=== PATIENT | female | born 1985 ===

== ENCOUNTER 2020-01-31 09:19 | Inpatient (IN) | payer MEDICAID, OTHER ==
[2020-01-31] MEDS ORDERED: METOCLOPRAMIDE 10 MG/2 ML INJ IV ONE (09:41)
[2020-01-31] MEDS ORDERED: FAMOTIDINE 20 MG/2 ML INJ IV ONE (09:41)
[2020-01-31] MEDS ORDERED: BICITRA ORAL LIQD 30ML PO ONE (09:41)
[2020-01-31] MEDS ORDERED: OXYTOCIN 20 UNIT/1000ML DRIP 20 UNITS/1,000 ML BAG IV SCH ×2 (10:00→13:00)
[2020-01-31] MEDS ORDERED: ceFAZolin/Water 2 GM/20 ML 2 GM/20 ML SYRINGE IV NR (10:00)
[2020-01-31] MEDS: LACTATED RINGERS 1,000 ML IV SCH ×3 (10:20→17:23)
[2020-01-31 10:33] LABS: Basophils % (Auto) 0.8 % (0.0-1.8); Eosinophils # (Auto) 0.1 K/mm3 (0.0-0.4); Eosinophils % (Auto) 1.1 % (0.0-4.3); Hematocrit 37.2 % (30.3-42.9); Hemoglobin 12.6 gm/dl (10.1-14.3); Lymphocytes # (Auto) 1.6 K/mm3 (1.2-5.4); Lymphocytes % (Auto) 24.5 % (13.4-35.0); Mean Corpuscular HGB Conc 34 % (30-34); Mean Corpuscular Volume 92 fl (79-97); Monocytes # (Auto) 0.4 K/mm3 (0.0-0.8); Monocytes % (Auto) 6.8 % (0.0-7.3); Platelet Count 279 K/mm3 (140-440); Red Blood Count 4.03 M/mm3 (3.65-5.03); Red Cell Distribution Width 14.9 % (13.2-15.2)
[2020-01-31] MEDS ORDERED: BUPIVACAINE/PF (0.5%) 5 MG/1 ML 30 ML VIAL INFILTRATI ONE (11:18)
[2020-01-31] MEDS ORDERED: DEXMEDETOMIDINE 200 MCG/2 ML VIAL IV ONE (11:18)
[2020-01-31] MEDS ORDERED: ONDANSETRON 4 MG/2 ML INJ ONE (11:18)
[2020-01-31] MEDS ORDERED: BUPIVACAINE /DEX-WATER 0.75% (2 ML) AMPULE INFILTRATI ONE (11:18)
--- NOTE | 2020-01-31 11:27 | Anesthesia Consultation ---
Anesthesia Consult and Med Hx Date of service: 01/31/20 - Airway Anesthetic Teeth Evaluation: Good ROM Head & Neck: Adequate Mental/Hyoid Distance: Adequate Mallampati Class: Class II Intubation Access Assessment: Probably Good - Pulmonary Exam CTA: Yes - Cardiac Exam Cardiac Exam: RRR - Pre-Operative Health Status ASA Pre-Surgery Classification: ASA2 Proposed Anesthetic Plan: Spinal - Pulmonary Hx Asthma: No COPD: No Hx Pneumonia: No - Cardiovascular System Hx Hypertension: No - Central Nervous System Hx Seizures: No Hx Psychiatric Problems: No - Endocrine Hx Renal Disease: No Hx End Stage Renal Disease: No Hx Hypothyroidism: No Hx Hyperthyroidism: No - Hematic Hx Anemia: Yes (taking iron) Hx Sickle Cell Disease: No - Other Systems Hx Alcohol Use: No
--- NOTE | 2020-01-31 11:28 | Anesthesia Day of Surgery ---
Anesthesia Day of Surgery - Day of Surgery Patient Examined: Yes Patient H&P Reviewed: Yes Patient is NPO: Yes
[2020-01-31] MEDS ORDERED: ceFAZolin/STERILE WATER 2 GM/20 ML SYRINGE IV ONE (11:37)
[2020-01-31] MEDS ORDERED: NALOXONE 0.4 MG/1 ML INJ IV PRN (12:49)
[2020-01-31] MEDS ORDERED: LANOLIN/ZINC/DIMETHICONE (LANSINOH) 7 GM TP PRN (12:49)
[2020-01-31] MEDS ORDERED: WITCH HAZEL/ GLYCERIN PAD TP PRN (12:49)
--- NOTE | 2020-01-31 12:49 | Procedure Note ---
OB Delivery Note - Delivery Date of Delivery: 01/31/20 Surgeon: TERESA HARRIS Estimated blood loss: other (800 cc) - Section Preop diagnosis: repeat Postop diagnosis: same section procedure: section, repeat low transverse Disposition: PACU Complications: none Narrative: Indication: 35 yo with history of 2 prior C-sections is here for her scheduled repeat low-transverse . Findings: Normal uterus, tubes and ovaries. Clear fluid. Loose nuchal cord x 1. Mild subcutaneous tissue scarring. No significant intra-abdominal scarring Procedure: Patient taken to the operating room and prepped and draped in the usual fashion. Pfannenstiel skin incision was made and carried down to the underlying fascia. Fascia was incised and the incision was extended bilaterally. Rectus fascia dissected off the rectus muscle both superiorly and inferiorly. Peritoneum identified tented up and entered. Peritoneal incision extended superiorly and inferiorly with good visualization of the bladder. Bladder blade was placed. Uterine incision was made and the incision was extended bilaterally. The baby was delivered from in the typical vertex fashion. Baby bulb suctioned at the incision site and again after delivery. Cord was delayed clamped and cut and handed off to waiting team. The placenta was delivered spontaneously. The uterus was exteriorized and cleared of all clots and debris. Uterine incision closed with 0 Vicryl in a running locked fashion followed by a second imbricating layer of 0 Vicryl. Good hemostasis was noted. Her urine was clear. Uterus tubes and ovaries were return to the abdominal cavity. Gutters were cleared of all clots and debris and the pelvis was well irrigated. Good hemostasis noted. Interceed placed over the uterine incision and over the lower uterine segment in the midline. Attention was turned to the rectus fascia which was reapproximated with 0 Vicryl in a running fashion. Subcutaneous tissue was irrigated and reapproximated with 2-0 Vicryl in a running fashion. Skin was closed with 4-0 Vicryl in a subcuticular fashion followed by Dermabond. The procedure was concluded at this point and the patient tolerated the procedure well. All instrument and lap counts were correct. - Infant A at 1 minute: 8 at 5 minutes: 9 Infant Gender: Female
[2020-01-31] MEDS ORDERED: SIMETHICONE 80 MG CHEW TAB PO PRN (12:51)
[2020-01-31] MEDS ORDERED: MAGNESIUM HYDROXIDE (MOM) ORAL LIQD UDC PO PRN (12:51)
[2020-01-31] MEDS ORDERED: SENNOSIDES 8.6 MG TAB PO PRN (12:51)
[2020-01-31] MEDS ORDERED: ONDANSETRON 4 MG/2 ML INJ IV PRN (12:51)
[2020-01-31] MEDS ORDERED: PHENYLEPHRINE/NS 1,000 MCG/10 ML SYRINGE (OR USE) IV ONE (13:25)
--- NOTE | 2020-01-31 13:29 | Progress Note ---
Regional Anesthesia Block - Regional Anesthesia Block Start Time: 13:05 Stop Time: 13:10 Performed By:: MITCHELL WOODS Procedure: U/S guided bilateral tap block performed for post-operative pain requested by Dr. Patel. H&P & labs reviewed. Procedure explained, questions answered, consent obtained. Patient in the supine position with ekg, blood pressure cuff and pulse ox on and working in PACU. Timeout performed immediately before start of procedure. Probe placed in the mid-axillary line and the external oblique, internal oblique, and transverse abdominus muscles identified. Skin was cleansed with 0.5% Chlorahexadine and allowed to dry. A 4" 20 G Dumont echogenic needle was advanced in plane until the tip was in the fascial plane between the internal oblique and the transverse abdominus. After negative aspiration 35 ml/side of [30 ml 0.5% Bupivacaine] and [40 ml sterile saline] was injected in 5 ml increments with negative aspiration in between. Patient tolerated procedure well. Galileo SRNA
--- NOTE | 2020-01-31 13:29 | Post Anesthesia Evaluation ---
- Post Anesthesia Evaluation Patient Participated: Yes Airway Patent: Yes Stable Respiratory Function: Yes Nausea/Vomiting: No Temp > 96.8F: Yes Pain Manageable: Yes Adequeate Hydration: Yes Anesthesia Complications: No Block Receding Appropriately: Yes
[2020-01-31] MEDS: KETOROLAC 30 MG/1 ML INJ IV PRN (17:50)
[2020-02-01] MEDS: KETOROLAC 30 MG/1 ML INJ IV PRN ×2 (00:30→06:26)
[2020-02-01] MEDS: oxyCODONE /ACETAMINOPHEN 5-325MG TAB PO PRN ×2 (02:50→14:13)
[2020-02-01 07:29] LABS: Hematocrit 28.8 % (30.3-42.9); Hemoglobin 9.8 gm/dl (10.1-14.3)
--- NOTE | 2020-02-01 10:36 | Progress Note ---
Assessment and Plan - Patient Problems (1) delivery delivered Current Visit: Yes Status: Acute Plan to address problem: Continue routine PP orders Keep incision clean and dry, remove drsg on POD#2 Anticipate d/c home in 24-48 hrs (2) Anemia Current Visit: Yes Status: Acute Qualifiers: Anemia type: other cause Other causes of anemia: acute posthemorrhagic Qualified Code(s): D62 - Acute posthemorrhagic anemia Plan to address problem: Asymptomatic Increase iron rich foods into diet Continue daily oral iron supplementation as directed Subjective - Subjective Date of service: 02/01/20 Principal diagnosis: S/P repeat C/S; POD#1 Interval history: See admission H&P; OB operative report and PP progress notes Patient reports: appetite normal, voiding normally, pain well controlled (with medications), flatus, ambulating normally [place]: doing well, bottle feeding Objective - Vital Signs Latest vital signs: Vital Signs Temp Pulse Resp BP BP Pulse Ox 02/01/20 08:55 97.7 F 77 18 123/60 97 02/01/20 05:30 98.2 F 86 20 121/64 97 02/01/20 00:04 98.2 F 76 20 116/59 98 01/31/20 19:58 98.2 F 73 20 123/67 97 01/31/20 15:02 98.0 F 83 16 127/70 100 01/31/20 14:05 98.5 F 75 15 113/63 98 01/31/20 13:50 82 14 120/50 99 01/31/20 13:35 83 19 112/66 100 01/31/20 13:20 78 15 110/78 100 01/31/20 13:15 83 17 114/76 99 01/31/20 13:10 88 18 106/47 100 01/31/20 13:05 83 14 114/57 99 01/31/20 13:01 97.9 F 81 15 111/45 100 01/31/20 12:00 98.4 F 76 18 122/74 99 01/31/20 11:14 80 97 01/31/20 11:09 82 97 01/31/20 11:04 79 98 01/31/20 10:55 79 98 01/31/20 10:50 79 98 01/31/20 10:45 77 98 01/31/20 10:40 80 98 01/31/20 10:35 80 97 Intake and Output 01/31/20 02/01/20 02/01/20 23:59 07:59 15:59 Intake Total 480 100 240 Output Total 1400 Balance 480 -1300 240 Intake: Oral 480 100 240 Output: Urine 1400 Indwelling Catheter 600 Void 800 Other: Total, Intake Amount 240 100 240 Total, Output Amount 800 # Voids Void 1 - Exam Breasts: Present: normal Cardiovascular: Present: Regular rate Lungs: Present: Normal air movement Abdomen: Present: soft, tenderness Uterus: Present: firm, fundal height below umbilicus (U-1) Extremities: Present: edema (slight edema in ankles/feet) Deep Tendon Reflex Grade: Normal +2 Incision: Present: dressed (no shadow drainage or bleeding noted) - Labs Labs: Abnormal lab results 02/01/20 Range/Units 06:16 Hgb 9.8 L (10.1-14.3) gm/dl Hct 28.8 L D (30.3-42.9) %
[2020-02-01] MEDS: IBUPROFEN 800 MG TAB PO PRN ×2 (14:12→22:39)
[2020-02-01] MEDS: FERROUS SULFATE 325 MG TAB PO SCH (14:12)
[2020-02-02] MEDS: IBUPROFEN 800 MG TAB PO PRN (05:36)
[2020-02-02] MEDS: oxyCODONE /ACETAMINOPHEN 5-325MG TAB PO PRN (10:07)
[2020-02-02] MEDS: FERROUS SULFATE 325 MG TAB PO SCH ×2 (10:07→10:12)
--- NOTE | 2020-02-02 10:15 | Discharge Summary ---
Providers - Providers Date of Admission: 01/31/20 09:19 Date of discharge: 02/02/20 (1200) Attending physician: TERESA HARRIS Primary care physician: TERESA HARRIS Hospitalization Reason for admission: section Delivery: Procedure: repeat low transverse Episiotomy: none Laceration: none Incision: dry, intact (no drainage or bleeding noted) Other procedures: none complications: none Discharge diagnosis: IUP at term delivered [place] baby: female Hospital course: See admission H & P and OB operative report; PP progress notes Condition at discharge: Stable Disposition: DC-01 TO HOME OR SELFCARE - Discharge Diagnoses (1) delivery delivered Status: Acute (2) Anemia Status: Acute Qualifiers: Anemia type: other cause Other causes of anemia: acute posthemorrhagic Qualified Code(s): D62 - Acute posthemorrhagic anemia Plan - Discharge Medications Prescriptions: Ferrous Sulfate [Feosol 325 MG tab] 325 mg PO QDAY 30 Days #30 tablet Ibuprofen [Motrin 800 MG tab] 800 mg PO Q8HR PRN #30 tablet PRN Reason: Mild Pain oxyCODONE /ACETAMINOPHEN [Percocet 5/325 mg] 1 tab PO Q4HR PRN #30 tablet PRN Reason: Pain - Provider Discharge Summary Activity: routine, no sex for 6 weeks, no heavy lifting 4 weeks, no strenuous exercise Diet: other (Iron rich diet) Instructions: routine Additional instructions: [] Smoking cessation referral if applicable(refer to patient education folder for contact #) [] Refer to [facility] Booklet Call your doctor immediately for: * Fever > 100.5 * Heavy vaginal bleeding ( >1 pad per hour) * Severe persistent headache * Shortness of breath * Reddened, hot, painful area to leg or breast * Drainage or odor from incision. * Keep incision clean and dry at all times and follow doctor's instructions regarding bathing/showering - Follow up plan Follow up: TERESA HARRIS MD [Primary Care Provider] - 14 Days Forms: [facility] Discharge Summary
[2020-02-02 16:31] VITALS: BP 126/70
== END 2020-02-02 16:28 | disposition home or self-care (01) | DRG 787 ==
LOC: APU 09:19 → LD 12:29 → OB 14:58
PROVIDERS: ADMIT Obstetrics & Gynecology; ATTEND Obstetrics & Gynecology
PROC: 10D00Z1 Extraction of Products of Conception, Low, Open Approach (ICD-10-PCS; principal; 2020-01-31)
DX: O34.211 Maternal care for low transverse scar from previous cesarean delivery (principal); D62 Acute posthemorrhagic anemia; O99.02 Anemia complicating childbirth; Z3A.39 39 weeks gestation of pregnancy; Z37.0 Single live birth
CPT/HCPCS: 36415; 59025; 85014; 85018; 85025; 86850; 86900; 86901; 96360; G0378; A6250; J0690; J1885; J2370; J2405; J2590; J2765; J3490; J7120